=== PATIENT | male | born 1965 | race Caucasian/White ===

== ENCOUNTER 2024-04-30 14:30 | Outpatient (AMB) | payer OTHER, SELFPAY ==
--- NOTE | 2024-04-30 14:31 | HO.NEPHOV_ITS ---
Vital Signs 04/30/24 14:32 04/30/24 15:02 Height 6 ft 3 in Weight 238 lb BMI 29.7 BP 150/82 H 146/80 H Blood Pressure Location Lt brachial Rt brachial Position Sitting Sitting Pulse 88 Pulse Source Pulse Oximeter Pulse Oximetry (%) 97 Oxygen Delivery Method Room Air Intake Visit Reasons: ENP: JESSE/ History of CKD STG2 [employer] Required: No Accompanied by: Self / Same As Patient Allergies No Known Allergies Allergy (Verified 04/30/24 14:34) Medication List - Last Reconciled 04/30/24 by Neel Krishnamurthy MD amlodipine 2.5 mg PO DAILY atorvastatin 20 mg PO DAILY lisinopril 5 mg PO DAILY HPI Comments Details: Farrukh is a pleasant 58-year-old man with a history of hypertension for more than 10 years. He has been on lisinopril 10 mg and amlodipine 2.5 mg. Recently he was found to have a bump in creatinine up to 1.47. Prior to this creatinine was 1.2 mg/dL. Lisinopril was cut down from 10 mg down to 5 mg. This consultation was requested for the management of HARRIET. Repeat creatinine was 1.07 with a EGFR of 17 mL/minute. Victor Hugo tells me that he was not drinking adequate fluids when the blood test was done. The initial blood tests also showed elevated serum albumin of 5.2 with a calcium of 10.3. However repeat calcium and albumin were within normal limits. He admits to snoring at night. He wakes up at least once maybe twice to urinate. He has no dysuria urgency. No hesitancy. No hematuria. [facility] Surgical History H/O colonoscopy (~09/2019) Review of Systems Const Denies fever(s) and Denies weight loss Card Denies chest pain Resp Denies cough and Denies hemoptysis GI Denies abdominal pain, Denies diarrhea and Denies nausea Musc Denies back pain Neuro Denies focal weakness Physical Exam Vital Signs: Last Vital Signs Pulse 88 04/30/24 14:32 BP 150/82 H 04/30/24 14:32 Pulse Ox 97 04/30/24 14:32 Oxygen Delivery Method Room Air 04/30/24 14:32 BMI result Body Mass Index 29.7 Comfortable Neck supple no JVD. Lungs entry equal no rales. Heart S1-S2 heard no gallop or rub. Abdomen soft nontender. Neuro alert awake oriented. No asterixis. Extremities no edema. Const General: comfortable; No acute distress Orientation/consciousness: patient oriented x3 Eyes General: appearance normal, both eyes and all related structures Visual Hall: normal visual hall by confrontation Neck Neck: Yes supple and Yes no JVD Resp Effort & Inspection: normal respiratory effort and respiratory effort not decreased Auscultation: rhonchi Cardio Palpation: no palpable S3 and no palpable S4 Heart sounds: no rubs GI Inspection: Yes normal to inspection Palpation (GI): Soft to palpation Percussion: Yes normal to percussion Auscultation: normal bowel sounds General: Yes no CVA tenderness Back/Spine/Pelvis Back: no CVA tenderness Skin General skin exam: no petechiae and no purpura Neuro General: patient oriented x3 and no focal motor deficits Extrem General: No clubbing and No edema Results Reviewed Results Reviewed: Repeat creatinine 1.07 Serum albumin normal Hemoglobin 15.7. Serum calcium normal. All electrolytes were normal. Urine protein creatinine ratio was normal. Nephrology Results: No Data to Display Assessment & Plan Assessment & Plan (1) CKD (chronic kidney disease): Code(s): N18.9 - Chronic kidney disease, unspecified Category: Medical (2) HTN (hypertension): Code(s): I10 - Essential (primary) hypertension Category: Medical Plan 58-year-old man with longstanding hypertension had sustained acute kidney injury. Acute kidney injury was most likely due to hypoperfusion. He was probably volume depleted while he was on lisinopril. After decreasing lisinopril and with hydration, the renal function has improved significantly. Serum calcium was elevated along with serum albumin. With hydration both these values returned to baseline. Agree with obtaining renal ultrasonogram for completion. Encouraged him to stay on a low-sodium diet Increase oral fluid intake. Keep him on the current dose of lisinopril. Blood pressure is suboptimal therefore I will increase amlodipine from 2.5 mg to 5 mg a day. He admits to snoring at night. I suspect there could be a component of obstructive sleep apnea as well. I would consider sleep evaluation at some point. This can be done after the holidays. I have reassured him and we will see him again in the next couple of weeks. I will keep you updated. Orders: Orders UA and rflx microscopic Today N18.9 - Chronic kidney disease, unspecified Medications: New amlodipine 5 mg PO DAILY 30 tabs 3RF Coding Level of Care Code New Pt Level 4 (41898) Diagnoses CKD (chronic kidney disease) N18.9 HTN (hypertension) I10
[2024-04-30 14:32] VITALS: BP 150/82; PULSE 88; O2SAT 97; BMI 29.7
[2024-04-30 15:02] VITALS: BP 146/80
== END 2024-04-30 15:00 | disposition home or self-care (01) ==
LOC: HO.HKAM 14:30
PROVIDERS: PCP Family Medicine; Referring Provider Family Medicine; Visit Provider Internal Medicine Hypertension Specialist
DX: I12.9 Hypertensive chronic kidney disease with stage 1 through stage 4 chronic kidney disease, or unspecified chronic kidney disease (principal); N18.9 Chronic kidney disease, unspecified
CPT/HCPCS: 99204

== ENCOUNTER → 2024-04-30 14:30 | Outpatient (BNVA) | payer OTHER, SELFPAY | PROVIDERS: PCP Family Medicine; Referring Provider Family Medicine; Visit Provider Internal Medicine Hypertension Specialist ==

== ENCOUNTER 2024-04-30 15:03 | Outpatient (REF) | payer OTHER, SELFPAY ==
[2024-04-30 16:22] LABS: Appearance Urine Clear; Color Urine Yellow; Glucose Urine UA Negative (Negative); Leukocyte Esterase Urine Negative (Negative); Nitrite Urine Negative (Negative); Urine Blood Negative (Negative); Urine Ketones Negative (Negative); Urine Protein Negative (Neg-Trace)
== END 2024-04-30 15:04 | disposition home or self-care (01) ==
LOC: HO.HHCL 15:03
PROVIDERS: Visit Provider Internal Medicine Hypertension Specialist
DX: N18.9 Chronic kidney disease, unspecified (principal)
CPT/HCPCS: 81003